=== PATIENT | male | born 1950 | race Two or more races ===

== ENCOUNTER 2018-11-09 09:57 | Emergency (ER) | payer OTHER ==
[~2018-11-09] VITALS: Ht 182.9 cm; Wt 90.7 kg
[2018-11-09 10:00] VITALS: BP 148/89
--- NOTE | 2018-11-09 10:06 | NUR ---
PEDRO, PRESS BUCKER, SPEAKING WITH PT IN TRIAGE ROOM
--- NOTE | 2018-11-09 10:12 | NUR ---
CALLED K[facility] FOR LUNCH TRAY
== END 2018-11-09 10:41 | disposition home or self-care (01) ==
LOC: ER 10:04
DX: R60.9 Edema, unspecified (principal); Z59.0 Homelessness; I11.0 Hypertensive heart disease with heart failure; I50.9 Heart failure, unspecified; I48.91 Unspecified atrial fibrillation; F17.200 Nicotine dependence, unspecified, uncomplicated
CPT/HCPCS: 99283; A4606; Z7610

== ENCOUNTER 2018-12-09 20:29 | Emergency (ER) | payer OTHER ==
[~2018-12-09] VITALS: Ht 177.8 cm; Wt 97.1 kg
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
--- NOTE | 2018-12-09 20:35 | NUR ---
PT BBRA, PT TO ER BED 08. MADE AWARE
[2018-12-09] MEDS ORDERED: DILTIAZEM HCL 25 MG IV ONE (20:37)
--- NOTE | 2018-12-09 20:37 | NUR ---
CODE STROKE ACTIVATED
--- NOTE | 2018-12-09 20:38 | NUR ---
[facility] DEMONSTRATOR AT BEDSIDE FOR BLOOD DRAW.
--- NOTE | 2018-12-09 20:39 | NUR ---
PT TRANSPORTED TO RADIOLOGY FOR CT HEAD VIA ACLS PROTOCOL WITH RN AND EMT AT BEDSIDE.
[2018-12-09] MEDS: DILTIAZEM HCL 25 MG IV IV ONE ×2 (20:42→21:00)
--- NOTE | 2018-12-09 20:45 | NUR ---
CORPORATE RELATIONS DIRECTOR BESIDE
[2018-12-09 20:48] LABS: BASOPHILS # (AUTO) 0.1 /CMM (0.0-0.2); EOSINOPHILS % (AUTO) 2.6 % (0.0-6.0); HEMATOCRIT 48 % (39-51); LYMPHOCYTES # (AUTO) 1.6 /CMM (0.8-4.8); LYMPHOCYTES % (AUTO) 17.7 % (20.0-44.0); MEAN CORPUSCULAR HGB CONC 32 g/dl (31.0-36.0); MEAN CORPUSCULAR VOLUME 78 fL (80-96); MONOCYTES # (AUTO) 0.9 /CMM (0.1-1.30); MONOCYTES % (AUTO) 10.2 % (2.0-12.0); NEUTROPHILS # (AUTO) 6.3 /CMM (1.8-8.9); NEUTROPHILS % (AUTO) 68.5 % (43.0-81.0); PLATELET COUNT (AUTO) 346 /CMM (150-450); RED BLOOD CELL COUNT(AUTO) 6.08 MIL/uL (4.5-6.0); WHITE BLOOD COUNT (AUTO) 9.1 K/uL (4.3-11.0)
--- NOTE | 2018-12-09 20:48 | NUR ---
CALLED [facility] TELE STROKE LINE DR. CAMPBELL
--- NOTE | 2018-12-09 20:48 | NUR ---
PT RETURN FROM CT
--- NOTE | 2018-12-09 20:53 | NUR ---
DR HERNÁNDEZ SPEAKING WITH TELE STROKE
--- NOTE | 2018-12-09 20:53 | NUR ---
RADIOLOGY BEDSIDE FOR CHEST X-RAY
--- NOTE | 2018-12-09 20:53 | NUR ---
RESPIRATORY THERAPIST BEDSIDE FOR ABD DRAW
[2018-12-09] MEDS ORDERED: LORAZEPAM INJ 2 MG/ML VIAL ONE (20:54)
--- NOTE | 2018-12-09 20:58 | NUR ---
RT AT BEDSIDE FOR ABGs
[2018-12-09 20:59] LABS: CALCIUM, SERUM 9.6 mg/dL (8.5-10.1); CARBON DIOXIDE 31 mmol/L (21-32); CHLORIDE 102 mmol/L (98-107); CREATININE 1.4 mg/dL (0.6-1.3); GLUCOSE 116 mg/dL (74-106); POTASSIUM 4.4 mmol/L (3.5-5.1); SODIUM SERUM 139 mmol/L (136-145); UREA NITROGEN, BLOOD 18 mg/dL (7-18)
[2018-12-09] MEDS ORDERED: IV NS 0.9% 1,000 ML BAG IV ONE (21:00)
[2018-12-09] MEDS ORDERED: LORAZEPAM INJ 2 MG/ML VIAL IV ONE (21:00)
[2018-12-09 21:07] VITALS: BP 162/90
[2018-12-09 21:07] LABS: ALANINE AMINOTRANSFERASE 56 U/L (12-78); ALBUMIN 3.5 g/dL (3.4-5.0); ALKALINE PHOSPHATASE 122 U/L (46-116); ASPARTATE AMINOTRANSFERASE 33 U/L (15-37); BILIRUBIN,DIRECT 0.1 mg/dL (0.0-0.2); BILIRUBIN,TOTAL 0.4 mg/dL (0.2-1.0); TOTAL PROTEIN, SERUM 7.9 g/dL (6.4-8.2)
--- NOTE | 2018-12-09 21:07 | NUR ---
PT INTUBATED IN THE ER AT THIS TIME WITH ETT SIZE 7.5 AND 21 @ THE LIP. CO2 DETECTOR HAD POSITIVE COLOR CHANGE. AUSCULATED BILATERAL BREATH SOUNDS WITH EQUAL CHEST RISE. PT PLACED ON AC 16, 600, 60% PER MD ORDERS. SUCTIONED MODERATE AMOUNT OF THICK WHITE/YELLOW FROTHY SECRETIONS. VENT PLUGGED INTO THE RED OUTLET. AMBU BAG AT BEDSIDE. ALARMS ARE ON AND AUDIBLE. CHEMISTRY INTERN DONE. WILL CONT TO MONITOR PT. Addendum: 12/09/18 at 2148 by MADDIE BOYLE RT Amended: Links added.
[2018-12-09 21:10] LABS: CHOLESTEROL 116 mg/dL (<200); HDL CHOLESTEROL 53 mg/dL (40-60); LDL 56 mg/dL (0-99); TRIGLYCERIDES 79 mg/dL (30-150)
[2018-12-09] MEDS ORDERED: IOHEXOL-350 100 ML VIAL IV ONE (21:12)
[2018-12-09] MEDS ORDERED: MIDAZOLAM 50 MG/10 ML VIAL ONE (21:18)
[2018-12-09] MEDS ORDERED: FENTANYL CITRAT IV 2,500 MCG in IV NS 0.9% 200 ML IV PRN (21:30)
[2018-12-09] MEDS ORDERED: MIDAZOLAM HCL 100 MG in IV NS 0.9% 80 ML IV PRN (21:30)
--- NOTE | 2018-12-09 21:37 | NUR ---
CALLED TELE STROKE HOTLINE, AWAITING CALL BACK FROM DR. INIGUEZ FOR DR TO
--- NOTE | 2018-12-09 21:40 | NUR ---
DR HERNÁNDEZ SPEAKING WITH DR INIGUEZ, AWAITING CALL BACK FOR [facility] TRANSPORT INFORMATION.
--- NOTE | 2018-12-09 21:43 | NUR ---
CALLED [facility]NAGER [employer] FOR FENTANYL DRIP, WAS TOLD PHARMACY ON THEIR WAY, AWAITING MEDICATIONS
--- NOTE | 2018-12-09 21:50 | NUR ---
ATTEMPTED TO GET AN ABG PRIOR TO INTUBATION BUT THE RESULTS WERE VENOUS. IMMEDIATE INTUBATION WAS TAKEN PLACE FOLLOWED BY TRANSPORT TO CT SCAN. SPOKE TO MD AT THIS TIME AND HE STATED POST ABG NOT NEEDED AT THIS TIME DUE TO PT BEING TRANSPORTED. WILL CONT TO MONITOR PT.
--- NOTE | 2018-12-09 22:08 | NUR ---
[facility] CALLED STATED "WE'RE ON OUR WAY BE THERE SHORTLY"
[2018-12-09] MEDS ORDERED: DILTIAZEM HCL 50 MG IV ONE (22:10)
[2018-12-09] MEDS ORDERED: DILTIAZEM HCL 50 MG IV IV ONE (22:30)
[2018-12-09 23:03] VITALS: BP 145/101
--- NOTE | 2018-12-09 23:17 | NUR ---
REPORT GIVEN TO RAMONA SMITH AT [facility] FOR [facility]
== END 2018-12-09 23:24 | disposition short-term general hospital (02) ==
LOC: ER 20:29
DX: I48.2 Chronic atrial fibrillation (principal); G93.40 Encephalopathy, unspecified; I63.9 Cerebral infarction, unspecified; G83.9 Paralytic syndrome, unspecified; J96.00 Acute respiratory failure, unspecified whether with hypoxia or hypercapnia; I16.1 Hypertensive emergency; R41.82 Altered mental status, unspecified; E78.5 Hyperlipidemia, unspecified; I11.0 Hypertensive heart disease with heart failure; I50.9 Heart failure, unspecified; F10.10 Alcohol abuse, uncomplicated; F17.200 Nicotine dependence, unspecified, uncomplicated; Y90.9 Presence of alcohol in blood, level not specified; Z59.0 Homelessness
CPT/HCPCS: 36415; 70450-TC; 70496-TC; 70498-TC; 71045-TC; 80048-TC; 80061-TC; 80076-TC; 82962-TC; 84484-TC; 85025-TC; 85730-TC; 86850-TC; 99082-TC; J2060; J2250; J3010; J3490; J7030; J7050; Q9967